=== PATIENT | female | born 1955 | race Caucasian/White ===

== ENCOUNTER 2016-10-09 22:35 | Observation (INO) | payer MEDICAID ==
[~2016-10-09] VITALS: Ht 157.5 cm; Wt 58.6 kg
--- NOTE | ~2016-10-09 | EC ---
PATIENT:CRISTIAN TAPIA DATE OF SERVICE: 10/10/16 SEX: F MEDICAL RECORD: [id number] DATE OF : [birth year] LOCATION:D.M2 D.210 AGE OF PATIENT: 61 ADMISSION DATE: 10/10/16 REFERRING PHYSICIAN: INTERPRETING PHYSICIAN: JEAN-PIERRE SCOTT MD ECHOCARDIOGRAM REPORT ECHO CHARGES 4 ECHO COMPLETE CLINICAL DIAGNOSIS: SUBSTERNAL CP ECHOCARDIOGRAPHIC MEASUREMENTS (adult normal given) AC root (d.<3.7cm) 2.5 cm LV Septum d (<1.2 cm> 1.1 cm Valve Excursion 1.7 cm LV Septum (systole) 1.5 cm Left Atria (s.<4.0cm> 2.6 cm LVPW d(<1.2cm) 1.0 cm RV (d.<2.3cm) 1.9 cm LVPW (sytole) 1.6 cm LV diastole(<5.6CM) 4.1 cm MV E-F(>70mm/sec) cm LV systole 2.3 cm LVOT Diameter 1.7 cm MV exc.(>10mm) cm Est.ejection fraction (50-75%) % Pericardial Effusion Y DOPPLER: LVIT cm/sec A 59.0 cm/sec E 100 cm/sec LA cm/sec RVSP 27.3 mmHg LVOT 100 cm/sec AOP1/2T m/s Asc. Ao 124 cm/sec RVOT 67.0 cm/sec RA cm/sec PA 73.0 cm/sec AV Gradient Peak 6.2 mmHg AV Mean 2.8 mmHg AV Area 1.8 cm MV Gradient Peak 5.0 mmHg MV Mean 1.5 mmHg MV Area cm COMMENTS: Python Engineer: John MENDOZAOE Environmental Sustainability Manager: 4 Dr. Scott TAPE# PACS DATE OF SERVICE: 10/10/2016 FINDINGS: 1. The left ventricle is shown to have normal size, normal function with normal inflow characteristics with an ejection fraction of 60% to 65%. 2. The left atrium is normal size, normal function. 3. The mitral valve has normal structure with no apparent mitral regurgitation, a slight bowing of the anterior mitral valve leaflet without evidence of prolapse. 4. The aortic valve is trileaflet, normal structure and function. ECHOCARDIOGRAM REPORT [id number] CRISTIAN TAPIA 5. The right ventricle is normal size and function with normal pulmonary pressures. 6. The pulmonic valve is normal, although not well-visualized. 7. The pericardium shows no evidence of significant pericardial effusion. There is possible trace pericardial effusion. 8. The inferior vena cava was visualized and normal in its size and collapses with inspiration, indicating normal central venous pressure. In conclusion, overall normal echocardiogram for this patient for her age. TRANSINT:[id number] Voice Confirmation ID: [id number] DOCUMENT ID: [id number] JEAN-PIERRE SCOTT MD CC: [id number] DICTATION DATE: 10/12/1649 LAYER OUT PLATE GLASS: 10/12/16 1208 DIS IN 10/10/16 [facility] [address] [place] [address]
[2016-10-10 00:02] LABS: WBC 6.5 10x3/uL (4.8-10.8)
[2016-10-10 00:03] LABS: BASOPHILS 0.2 % (0-2); EOSINOPHILS 0.9 % (0-7); HEMATOCRIT 44.3 % (36.0-48.0); HEMOGLOBIN 14.9 g/dL (12-16); IMMATURE GRANULOCYTES 0.5 % (0-5); LYMPHOCYTES 7.8 % (15-50); MCHC 33.6 g/dL (31.0-37.0); MCV 92.3 fL (80.0-100.0); MEAN PLATELET VOLUME 9.2 fL (7.4-10.4); MONOCYTES 2.5 % (2-11); NEUTROPHILS 88.1 % (40-80); PLATELET COUNT 245 10x3/uL (130-400); RDW 12.2 % (11.5-14.5)
[2016-10-10 00:22] LABS: ALBUMIN 4.3 g/dL (3.4-5.0); ALKALINE PHOSPHATASE 86 U/L (46-116); ALT (SGPT) 40 U/L (10-68); BILIRUBIN - TOTAL 0.45 mg/dL (0.2-1.3); CALC OSMOLALITY 279 mosm/kg (275-300); CALCIUM 9.3 mg/dL (8.5-10.1); CARBON DIOXIDE 28.8 mmol/L (21.0-32.0); CHLORIDE - SERUM 102 mmol/L (98-107); CREATININE - SERUM 0.8 mg/dL (0.6-1.3); GLUCOSE 121 mg/dL (74-106); POTASSIUM - SERUM 4.2 mmol/L (3.5-5.1); PROTEIN - SERUM 8.7 g/dL (6.4-8.2); SODIUM 138 mmol/L (136-145); UREA NITROGEN 20 mg/dL (7-18); eGFR NON AFRICAN AMERICAN 77 mL/min (90-120)
[2016-10-10 00:32] LABS: CREATINE KINASE 191 UL (21-215)
[2016-10-10 00:37] LABS: TROPONIN-I < 0.017 ng/mL (0.000-0.060)
--- NOTE | 2016-10-10 02:00 | NUR ---
61 yr old female admitted to MED 2 from ED via wheelchair accompanied by transporter and male friend. FULL Code status, alert and oriented x 4, independent with ADLs. PIV #20 in lower left arm where wrist and back of hand meet. Came to ED with complaints of chest pain, substeranl and right side radiating around to back, with vomiting and nausea, has vomited several times prior to coming to hospital. Onset of symptoms approx 2100. Denies SOB, EKG within normal limits, given NS 1 L bolus in ED, given Zofran 4mg, Morphine 4 mg, Phenergan 25mg and Pepcid 40mg in ED. Is to be NPO for cardiology consult in the morning. VSS. Settled into room 2102.
[2016-10-10 02:08] VITALS: BP 113/51; Ht 157.5 cm; Wt 58.6 kg
[2016-10-10 04:00] VITALS: BP 98/52
[2016-10-10 07:12] LABS: CKMB 1.1 U/L (0.0-3.6); CREATINE KINASE 94 UL (21-215)
[2016-10-10 07:15] LABS: TROPONIN-I < 0.017 ng/mL (0.000-0.060)
--- NOTE | 2016-10-10 07:41 | NUR ---
AM ROUNDS - PT AWAKE IN BED. SIDE RAILS UP X2. BED AT LOWEST POSITION. CALL MONSALVE IN USE/REACH. PT IS ON ROOM AIR. IV TO LEFT ARM, NS AT 125CC/HR. NO NEEDS AT THSI TIME. WILL CONTINUE TO MONITOR
[2016-10-10 07:56] VITALS: BP 98/46
[2016-10-10 11:41] VITALS: BP 91/45
[2016-10-10 12:36] LABS: CKMB 0.8 U/L (0.0-3.6); CREATINE KINASE 97 UL (21-215)
[2016-10-10 12:37] LABS: TROPONIN-I < 0.017 ng/mL (0.000-0.060)
--- NOTE | 2016-10-10 14:13 | NUR ---
PT AWAKE IN BED WITH VISITORS AT BEDSIDE. DIET HAS BEEM CHANGED TO A FULL LIQUID. NO FUTHER NEEDS AT THSI TIME. WILL CONTINUE TO MONITOR
[2016-10-10 16:26] VITALS: BP 95/40
--- NOTE | 2016-10-10 16:32 | NUR ---
PT'S SON CALLED TO CHECK ON HIS MOTHER. ASKED PT IF I WAS ALLOWED TO SPEAK WITH HER SON ABOUT HER CARE. SHE GRANTED ME PERMISSION. SON STATED THAT SEVERAL PEOPLE IN THE [facility] THAT SHE LIVES AT GOT SICK WITH N/V AND ABDOMINAL PAIN WELL. WILL CONTINUE TO MONITOR
--- NOTE | 2016-10-10 19:03 | NUR ---
PT LEFT FLOOR VIA WHEELCHAIR WITH CLOTHING DESIGNER. WILL D/C
== END 2016-10-10 19:04 | disposition home or self-care (01) ==
LOC: D.ER 22:35 → OBSVTIME 10-10 00:58 → D.M2 10-10 00:58
PROVIDERS: Emergency Medicine; ADMIT Family Medicine
DX: R07.89 Other chest pain (principal); R10.13 Epigastric pain; R11.2 Nausea with vomiting, unspecified; R51 Headache